=== PATIENT | male | born 1990 | race Caucasian/White ===

== ENCOUNTER 2023-07-05 13:16 | Emergency (ER) | payer MEDICAID ==
[~2023-07-05] VITALS: Ht 162.6 cm; Wt 90.3 kg
[2023-07-05 13:25] VITALS: BP_SYST 110; PULSE 88; RESP 20; TEMP 98.1; O2SAT 98
[2023-07-05] MEDS ORDERED: AMOX500C2 PO (13:32)
[2023-07-05] MEDS ORDERED: LORA-843 PO (13:32)
[2023-07-05 13:45] VITALS: BP_SYST 121; PULSE 100; RESP 20; TEMP 98.1; O2SAT 97
== END 2023-07-05 13:45 | disposition home or self-care (01) ==
LOC: SED 13:16
DX: H66.91 Otitis media, unspecified, right ear (principal); R42 Dizziness and giddiness; Z79.899 Other long term (current) drug therapy
CPT/HCPCS: 99283

== ENCOUNTER 2023-09-15 10:51 | Emergency (ER) | payer MEDICAID ==
[~2023-09-15] VITALS: Ht 162.6 cm; Wt 84.8 kg
[~2023-09-15 10:51] MED LIST: AMOX500C2 PO; LORA-843 PO
[2023-09-15 10:57] VITALS: BP_SYST 133; PULSE 76; RESP 18; TEMP 97.7; O2SAT 98
[2023-09-15 11:52] LABS: BILIRUBIN,URINE NEGATIVE (NEGATIVE); BLOOD, URINE NEGATIVE (NEGATIVE); CLARITY/URINE CLEAR (CLEAR); COLOR,URINE YELLOW (YELLOW); GLUCOSE,URINE NEGATIVE (NEGATIVE); KETONES,URINE NEGATIVE (NEGATIVE); LEUKOCYTE ESTERASE ,URINE NEGATIVE (NEGATIVE); NITRITE, URINE NEGATIVE (NEGATIVE); PH,URINE 5.5 (5.0-8.0); PROTEIN URINE NEGATIVE (NEGATIVE); UROBILINOGEN,URINE 0.2 (0.2-1.0)
[2023-09-15] MEDS ORDERED: PHEN-726 PO (12:32)
[2023-09-15] MEDS ORDERED: NITR-85 PO (12:32)
== END 2023-09-15 12:49 | disposition home or self-care (01) ==
LOC: SED 10:51
DX: R30.0 Dysuria (principal); J45.909 Unspecified asthma, uncomplicated; F12.90 Cannabis use, unspecified, uncomplicated
CPT/HCPCS: 81001; 81003; 81025; 99283